=== PATIENT | male | born 1985 | race African-American/Black ===

== ENCOUNTER 2018-07-06 13:23 | Emergency (ER) | payer MEDICAID ==
[~2018-07-06] VITALS: Ht 182.9 cm; Wt 95.0 kg
[~2018-07-06 13:23] MED LIST: AMLO10TA4; ATEN-42; HYDR25TA
[2018-07-06] MEDS ORDERED: HYDROCHLOROTHIAZIDE 25MG TABLET PO ONE (15:00)
[2018-07-06] MEDS ORDERED: LISINOPRIL 40MG TABLET PO ONE (15:00)
[2018-07-06 15:51] VITALS: BP 164/108
== END 2018-07-06 15:54 | disposition home or self-care (01) ==
LOC: ER 13:23
DX: L08.9 Local infection of the skin and subcutaneous tissue, unspecified (principal); R21 Rash and other nonspecific skin eruption; I10 Essential (primary) hypertension; F12.10 Cannabis abuse, uncomplicated; F15.10 Other stimulant abuse, uncomplicated; F17.200 Nicotine dependence, unspecified, uncomplicated; Z79.899 Other long term (current) drug therapy; Z98.890 Other specified postprocedural states
CPT/HCPCS: 99283

== ENCOUNTER 2019-10-10 19:30 | Emergency (ER) | payer MEDICAID ==
[~2019-10-10] VITALS: Ht 180.3 cm; Wt 94.0 kg
[2019-10-11] MEDS ORDERED: IBUPROFEN 600MG TABLET PO STA (00:30)
[2019-10-11] MEDS ORDERED: HYDROCODONE/ACETAMINOPHEN 5/325MG TABLET PO STA (00:30)
[2019-10-11 01:00] LABS: CHLORIDE 106 mEq/L (98-107)
[2019-10-11 01:03] LABS: BASOPHILS % 1.2 % (0.0-2.0); EOSINOPHILS % 2.3 % (0.0-5.0); HEMATOCRIT. 40.5 % (42.0-52.0); LYMPHOCYTES % 26.2 % (20.0-50.0); MEAN CORPUSCULAR HEMOGLOBIN 32.7 pg (28.0-32.0); MEAN CORPUSCULAR VOLUME 94.8 fL (80.0-94.0); MEAN PLATELET VOLUME 9.8 fl (7.4-10.4); MONOCYTES % 7.3 % (2.0-8.0); PLATELET 158 x1000/uL (130-400); RED BLOOD CELL COUNT 4.27 mill/uL (4.7-6.1)
[2019-10-11] MEDS ORDERED: CEFAZOLIN 1000MG PREMIX 50 ML IV ONE (02:00)
[2019-10-11] MEDS ORDERED: SODIUM CHLORIDE 0.9% 1,000 ML IV ONE (02:00)
[2019-10-11 06:05] VITALS: BP 150/90
== END 2019-10-11 06:14 | disposition home or self-care (01) ==
LOC: ER 19:36
DX: L03.116 Cellulitis of left lower limb (principal); F12.10 Cannabis abuse, uncomplicated; F15.20 Other stimulant dependence, uncomplicated; I10 Essential (primary) hypertension
CPT/HCPCS: 36415; 73630; 80048; 85025; 93005; 96365; 99285; J0690; J7030